=== PATIENT | male | born 1985 | race Two or more races ===

== ENCOUNTER 2018-11-06 03:31 | Emergency (ER) | payer OTHER ==
[~2018-11-06] VITALS: Ht 177.8 cm; Wt 90.7 kg
[2018-11-06 03:32] VITALS: BP 132/83
--- NOTE | 2018-11-06 03:32 | NUR ---
ED Nurse Note: Pt was brought in ED by Ambulance from fellows. Pt was possible " Robbery a store" accoding to the EMS. [employer] at bed side, pt is on custody and is on hand cuff. Pt is Awake with some drowsy, due to EMS given Vesed before arrival. Vital signs stable at this time. Dr. Jennings at bed side, waitng for orders.
--- NOTE | 2018-11-06 03:40 | Emergency Room Report ---
History of Present Illness General Chief Complaint: Behavioral Complaint Source: EMS Present Illness HPI This is a 32-year-old male brought in by EMS with police escort for chief complaint of agitation. Patient was committing a felony. He was running the street screaming and appeared be altered and under influence. He was not cooperative so EMS gave him 10 mg Versed IM. By time he got here he is sleeping and snoring. Not responsive to verbal command. Unable to get any other history from this patient. Allergies: Coded Allergies: No Known Allergies (Unverified , 11/06/18) Patient History Past Medical History: see triage record, old chart reviewed Past Surgical History: unable to obtain Pertinent Family History: unable to obtain Immunizations: other Reviewed Nursing Documentation: PMH: Agreed; PSxH: Agreed Nursing Documentation-PMH Past Medical History Deferred: Patient Unconscious Past Medical History: No Stated History Review of Systems All Other Systems: limited - secondary to sedation Physical Exam Vital Signs Date Time Temp Pulse Resp B/P (MAP) Pulse Ox O2 Delivery O2 Flow Rate FiO2 11/06/18 03:33 97.0 110 14 136/84 98 Room Air Sp02 EP Interpretation: reviewed, normal General Appearance: well appearing, no apparent distress, other - Sleeping Head: normocephalic, atraumatic Eyes: bilateral eye PERRL, bilateral eye EOMI ENT: hearing grossly normal, normal pharynx Neck: full range of motion, supple, no meningismus Respiratory: chest non-tender, lungs clear, normal breath sounds Cardiovascular #1: regular rate, rhythm, no murmur Gastrointestinal: normal bowel sounds, non tender, no mass, no organomegaly, no bruit, non-distended, other - Midline laparotomy scar Musculoskeletal: back normal, normal range of motion Neurologic: grossly normal Skin: warm/dry Medical Decision Making Diagnostic Impression: Primary Impression: Drug-induced psychotic disorder Qualified Codes: F19.959 - Other psychoactive substance use, unspecified with psychoactive substance-induced psychotic disorder, unspecified Additional Impression: Methamphetamine abuse ER Course patient presents with acute psychosis probably secondary to methamphetamine abuse. He was sedated by EMS. Been sleeping here and does not require sedation. Once he is awake, will discharge to [employer]. Lab Results Impression labs unremarkable Last Vital Signs Date Time Temp Pulse Resp B/P (MAP) Pulse Ox O2 Delivery O2 Flow Rate FiO2 11/06/18 03:33 97.0 110 14 136/84 98 Room Air Status: improved Disposition: D/C TO LAW ENFORCEMENT IN [facility]UST Condition: Stable Scripts Unable to Obtain Active Prescriptions or Reported Meds Additional Instructions: Stop using drugs. Follow-up with your doctor in 7 days. Return if worse. Rj Jennings MD Nov 06, 2018 03:40
[2018-11-06 03:58] LABS: BASOPHILS % (AUTO) 0.4 % (0.0-2.0); EOSINOPHILS % (AUTO) 0.7 % (0.0-3.0); HEMATOCRIT 41.1 % (42.0-52.0); HEMOGLOBIN 14.3 G/DL (14.2-18.0); LYMPHOCYTES % (AUTO) 18.2 % (20.0-45.0); MEAN CORPUSCULAR VOLUME 88 FL (80-99); MONOCYTES % (AUTO) 5.5 % (1.0-10.0); NEUTROPHILS % (AUTO) 75.2 % (45.0-75.0); PLATELET COUNT 187 K/UL (150-450); RED BLOOD COUNT 4.68 M/UL (4.70-6.10); RED CELL DISTRIBUTION WIDTH 10.8 % (11.6-14.8); WHITE BLOOD COUNT 9.4 K/UL (4.8-10.8)
[2018-11-06 04:23] LABS: ANION GAP 16 mmol/L (5-15); BLOOD UREA NITROGEN 24 mg/dL (7-18); CALCIUM 8.5 MG/DL (8.5-10.1); CARBON DIOXIDE 21 MMOL/L (21-32); CHLORIDE 102 MMOL/L (98-107); CREATININE 1.4 MG/DL (0.55-1.30); SODIUM 139 MMOL/L (136-145)
--- NOTE | 2018-11-06 06:40 | NUR ---
ED Nurse Note: Pt has seen by . all orders carried out. D/c instruction and retirement clearance given to [employer]. and verbalized understanding. IV/ ID band removed. Pt d/c from ED with steady gait. Accompanied by [employer].
--- NOTE | 2018-11-06 06:44 | NUR ---
ED Nurse Note: [facility] is waiting for another unit of staff to come to lease them.
[2018-11-06 07:10] VITALS: BP 132/81
--- NOTE | 2018-11-06 07:16 | NUR ---
ED Nurse Note: Pt is already been discharged, [facility] is still waiting for another unit of staff to come to lease them.
== END 2018-11-06 07:17 ==
LOC: EDBD 03:31 → EMR 03:47
DX: F19.959 Other psychoactive substance use, unspecified with psychoactive substance-induced psychotic disorder, unspecified (principal); F15.10 Other stimulant abuse, uncomplicated
CPT/HCPCS: 36415; 80048; 80307; 85025; 96360; 99284; G0480; 80329